=== PATIENT | male | born 1950 | race Caucasian/White ===

== ENCOUNTER 2017-03-28 11:18 | Inpatient (IN) | payer MEDICARE, OTHER ==
[~2017-03-28] VITALS: Ht 170.2 cm; Wt 75.0 kg
[2017-03-28 11:24] VITALS: BP 140/68; PULSE 52; RESP 15; TEMP 97.9; O2SAT 99
[2017-03-28] MEDS ORDERED: ASPI-183 PO (11:32)
[2017-03-28] MEDS ORDERED: LIPI10TA PO (11:32)
--- NOTE | 2017-03-28 11:49 | PD ---
HPI Chief Complaint: Musculoskeletal Complaint Time Seen by Provider: 11:39 Travel History International Travel<30 days: No Contact w/Intl Traveler<30days: No Traveled to known affect area: No History of Present Illness HPI A 66-year-old male presents to the emergency department for fall. The patient was removing [employer] lights when he missed the last step of his ladder. He was not dizzy or lightheaded, did not hit his head. The patient reports pain 9/10 on the pain scale, and localized to the middle of the left leg. Upon EMS arrival the patient was bradycardic, pale, and diaphoretic with a heart rate in the 40s and was given 650 mL of fluids prehospital. Patient was also given 10 of morphine which helped a little. Patient has a history of breaking the left leg in the same area 4 times previously and has had surgery on it before, he currently has no metal in it. The patient has a history of a left bundle branch block. History Past Surgical History Narrative Surgical orthopedic surgery on the left leg Social History Tobacco Use: No Allergies-Medications (Allergen,Severity, Reaction): Coded Allergies: No Known Allergies (Unverified , 03/28/17) Reported Meds & Prescriptions Reported Meds & Active Scripts Active Reported Lipitor (Atorvastatin Calcium) 10 Mg Tab 10 Mg PO DAILY Aspirin 325 Mg Tab 325 Mg PO DAILY Physical Exam Narrative GENERAL: SKIN: Warm and dry. HEAD: Atraumatic. Normocephalic. EYES: Pupils equal and round. No scleral icterus. No injection or drainage. ENT: No nasal bleeding or discharge. Mucous membranes pink and moist. NECK: Trachea midline. No JVD. CARDIOVASCULAR: Regular rate and rhythm. RESPIRATORY: No accessory muscle use. Clear to auscultation. Breath sounds equal bilaterally. GASTROINTESTINAL: Abdomen soft, non-tender, nondistended. Hepatic and splenic margins not palpable. MUSCULOSKELETAL: Extremities without clubbing, cyanosis, or edema. Dorsalis pedis pulse palpable bilaterally. No skin break but tenting noted on the medial aspect of the left lower leg. Tender to palpation. Neurovascularly intact. NEUROLOGICAL: Awake and alert. No obvious cranial nerve deficits. Motor grossly within normal limits. Five out of 5 muscle strength in the arms and legs. Normal speech. PSYCHIATRIC: Appropriate mood and affect; insight and judgment normal. Data Data Last Documented VS Vital Signs Date Time Temp Pulse Resp B/P (MAP) Pulse Ox O2 Delivery O2 Flow Rate FiO2 03/28/17 13:46 49 16 117/59 (78) 97 Nasal Cannula 2.00 03/28/17 11:24 97.9 Orders Orders Electrocardiogram (03/28/17 11:33) Ondansetron Inj (Zofran Inj) (03/28/17 12:00) Complete Blood Count With Diff (03/28/17 11:48) Comprehensive Metabolic Panel (03/28/17 11:48) Prothrombin Time / Inr (Pt) (03/28/17 11:48) Act Partial Throm Time (Ptt) (03/28/17 11:48) Urinalysis - C+S If Indicated (03/28/17 11:48) Chest, Single Ap (03/28/17 11:48) Iv Access Insert/Monitor (03/28/17 11:48) Ecg Monitoring (03/28/17 11:48) Oximetry (03/28/17 11:48) Hydromorphone Pf Inj (Dilaudid Pf Inj) (03/28/17 12:00) Tibia/Fibula (Ap/Lat) (03/28/17 12:20) Hydromorphone Pf Inj (Dilaudid Pf Inj) (03/28/17 12:45) Etomidate Inj (Amidate Inj) (03/28/17 13:00) Etomidate Inj (Amidate Inj) (03/28/17 12:47) Tibia/Fibula (Ap/Lat) (03/28/17 13:03) Admit To Inpatient (03/28/17 ) Vital Signs (Adult) Q4H (03/28/17 14:34) Activity Bed Rest (03/28/17 14:34) Diet Heart Healthy (03/28/17 Dinner) Sodium Chloride 0.9% Flush (Ns Flush) (03/28/17 14:45) Sodium Chloride 0.9% Flush (Ns Flush) (03/28/17 14:45) Acetaminophen (Tylenol) (03/28/17 14:45) Ondansetron Inj (Zofran Inj) (03/28/17 14:45) Comprehensive Metabolic Panel (03/29/17 06:00) Complete Blood Count With Diff (03/29/17 06:00) Scd Bilateral/Knee High MIREYA.BID (03/28/17 14:34) Oxycodone-Acetamin 10-325 Mg (Percocet 1 (03/28/17 14:45) Morphine Inj (Morphine Inj) (03/28/17 14:45) Naloxone Inj (Narcan Inj) (03/28/17 14:45) Docusate Sodium-Senna (Uzly-Colace) (03/28/17 21:00) Magnesium Hydroxide Liq (Milk Of Magnesi (03/28/17 14:45) Sennosides (Senokot) (03/28/17 14:45) Bisacodyl Supp (Dulcolax Supp) (03/28/17 14:45) Lactulose Liq (Lactulose Liq) (03/28/17 14:45) Inpatient Certification (03/28/17 ) Admit Order (Ed Use Only) (03/28/17 14:35) Labs Laboratory Tests Test 03/28/17 11:50 White Blood Count 6.7 TH/MM3 Red Blood Count 4.27 MIL/MM3 Hemoglobin 14.0 GM/DL Hematocrit 39.8 % Mean Corpuscular Volume 93.2 FL Mean Corpuscular Hemoglobin 32.8 PG Mean Corpuscular Hemoglobin Concent 35.2 % Red Cell Distribution Width 13.6 % Platelet Count 228 TH/MM3 Mean Platelet Volume 8.4 FL Neutrophils (%) (Auto) 64.8 % Lymphocytes (%) (Auto) 26.9 % Monocytes (%) (Auto) 6.3 % Eosinophils (%) (Auto) 1.3 % Basophils (%) (Auto) 0.7 % Neutrophils # (Auto) 4.4 TH/MM3 Lymphocytes # (Auto) 1.8 TH/MM3 Monocytes # (Auto) 0.4 TH/MM3 Eosinophils # (Auto) 0.1 TH/MM3 Basophils # (Auto) 0.0 TH/MM3 CBC Comment DIFF FINAL Differential Comment Prothrombin Time 10.7 SEC Prothromb Time International Ratio 1.1 RATIO Activated Partial Thromboplast Time 23.4 SEC Blood Urea Nitrogen 17 MG/DL Creatinine 0.88 MG/DL Random Glucose 94 MG/DL Total Protein 7.1 GM/DL Albumin 4.0 GM/DL Calcium Level 8.2 MG/DL Alkaline Phosphatase 75 U/L Aspartate Amino Transf (AST/SGOT) 21 U/L Alanine Aminotransferase (ALT/SGPT) 23 U/L Total Bilirubin 0.7 MG/DL Sodium Level 140 MEQ/L Potassium Level 3.8 MEQ/L Chloride Level 108 MEQ/L Carbon Dioxide Level 26.7 MEQ/L Anion Gap 5 MEQ/L Estimat Glomerular Filtration Rate 87 ML/MIN MDM Medical Decision Making Medical Screen Exam Complete: Yes Emergency Medical Condition: Yes Differential Diagnosis Tibia fracture versus tib-fib fracture versus contusion Narrative Course 66-year-old male presents today with complaints of left tib-fib fracture. Patient was on the ladder taking down [employer] decorations when he fell off and landed on his left lower extremity. The patient had previous fractures of that tib-fib in the past. He has palpable pulses and sensation. He does have some tenting noted in the skin. X-ray shows a midshaft tibia fracture. Also has evidence of missing fibula bone from his previous surgeries. The patient be admitted to the medicine service. He'll be made nothing by mouth after midnight. Case was discussed with Dr. Ciara Vaughn's PA who reports they will perform surgery in the morning. Diagnosis Primary Impression: Fracture of tibia with fibula, left, closed Qualified Codes: S82.202A - Unspecified fracture of shaft of left tibia, initial encounter for closed fracture; S82.402A - Unspecified fracture of shaft of left fibula, initial encounter for closed fracture Additional Impression: HLD (hyperlipidemia) Olman Pendleton MD Mar 28, 2017 11:49
[2017-03-28] MEDS ORDERED: ONDANSETRON HCL 4 MG/2 ML VIAL IV PUSH ONE (12:00)
[2017-03-28] MEDS ORDERED: HYDROmorphone HCL PF 2 MG/ML VIAL IVS ONE ×2 (12:00→12:45)
[2017-03-28 12:12] LABS: AUTOMATED NEUTROPHIL # 4.4 TH/MM3 (1.8-7.7); BASOPHIL % 0.7 % (0.0-2.0); EOSINOPHIL # 0.1 TH/MM3 (0-0.4); EOSINOPHIL % 1.3 % (0.0-4.0); HEMATOCRIT 39.8 % (39.0-51.0); LYMPH % 26.9 % (9.0-44.0); LYMPHOCYTE # 1.8 TH/MM3 (1.0-4.8); MEAN CELL VOLUME 93.2 FL (80.0-100.0); MEAN CORPUSCULAR HEMOGLOBIN 32.8 PG (27.0-34.0); MEAN CORPUSCULAR HGB CONC 35.2 % (32.0-36.0); MEAN PLATELET VOLUME 8.4 FL (7.0-11.0); MONO % 6.3 % (0.0-8.0); MONOCYTE # 0.4 TH/MM3 (0-0.9); NEUT % 64.8 % (16.0-70.0); PLATELET COUNT 228 TH/MM3 (150-450); RED BLOOD COUNT 4.27 MIL/MM3 (4.50-5.90); RED CELL DISTRIBUTION WIDTH 13.6 % (11.6-17.2); WHITE BLOOD COUNT 6.7 TH/MM3 (4.0-11.0)
[2017-03-28 12:24] LABS: INTERNATIONAL NORMALIZED RATIO 1.1 RATIO; PROTHROMBIN TIME - PATIENT 10.7 SEC (9.8-11.6)
--- NOTE | 2017-03-28 12:28 | RADRPT ---
EXAM DATE/TIME: 03/28/2017 12:02 [facility] COMPARISON: No previous studies available for comparison. INDICATIONS : Evaluate for pneumonia, pneumothorax or communicable disease. Pre op for left tibia surgery. MEDICAL HISTORY : hx of left bundle branch block SURGICAL HISTORY : None. ENCOUNTER: Initial ACUITY: 1 day PAIN SCORE: 0/10 LOCATION: Bilateral chest FINDINGS: A single view of the chest demonstrates the lungs to be symmetrically aerated without evidence of mas s, infiltrate or effusion. Mild compensated cardiomegaly. Osseous structures are intact. Previous right shoulder arthroplasty CONCLUSION: Mild compensated cardiomegaly otherwise negative Frederic Queen MD FACR on March 28, 2017 at 12:25 Board Certified Radiologist. This report was verified electronically.
[2017-03-28 12:32] LABS: ALT (GPT) 23 U/L (12-78); AST (GOT) 21 U/L (15-37); BICARBONATE 26.7 MEQ/L (21.0-32.0); BLOOD UREA NITROGEN 17 MG/DL (7-18); CALCIUM 8.2 MG/DL (8.5-10.1); CHLORIDE 108 MEQ/L (98-107); CREATININE 0.88 MG/DL (0.60-1.30); GLOMERULAR FILTRATION RATE 87 ML/MIN (>89); GLUCOSE,RANDOM 94 MG/DL (74-106); SODIUM (NA) 140 MEQ/L (136-145)
[2017-03-28 12:34] LABS: ALKALINE PHOSPHATASE 75 U/L (45-117); TOTAL BILIRUBIN ADULT 0.7 MG/DL (0.2-1.0); TOTAL PROTEIN 7.1 GM/DL (6.4-8.2)
--- NOTE | 2017-03-28 12:42 | RADRPT ---
EXAM DATE/TIME: 03/28/2017 11:54 [facility] COMPARISON: No previous studies available for comparison. INDICATIONS : Fell off of a ladder today. MEDICAL HISTORY : SURGICAL HISTORY : broke same leg 4 x per pt ENCOUNTER: Initial ACUITY: 1 day PAIN SCORE: 10/10 LOCATION: Left tib/fib FINDINGS: Both bone fracture of the distal tibia and fibula. Fibular fracture looks old. The tibial fracture may be across an old fracture. CONCLUSION: Probable re break old fracture distal tibia. Frederic Queen MD FACR on March 28, 2017 at 12:22 Board Certified Radiologist. This report was verified electronically.
[2017-03-28] MEDS ORDERED: ETOMIDATE 40 MG/20 ML VIAL ONE (12:47)
[2017-03-28] MEDS ORDERED: ETOMIDATE 20 MG/10 ML VIAL IV PUSH ONE (13:00)
[2017-03-28 13:13] VITALS: BP 125/65; PULSE 51; RESP 16; O2SAT 98
[2017-03-28 13:30] VITALS: BP 129/60; PULSE 56; RESP 16; O2SAT 96
[2017-03-28 13:46] VITALS: BP 117/59; PULSE 49; RESP 16; O2SAT 97
--- NOTE | 2017-03-28 13:52 | RADRPT ---
EXAM DATE/TIME: 03/28/2017 13:02 [facility] COMPARISON: TIBIA/FIBULA LEFT (AP/LAT), March 28, 2017, 11:54. INDICATIONS : Post reduction fracture mid-shaft left tibia. MEDICAL HISTORY : Fracture Left tibia prior SURGICAL HISTORY : None. ENCOUNTER: Subsequent ACUITY: 1 day PAIN SCORE: 10/10 LOCATION: Left tibia FINDINGS: Angulation persisting in fiberglass at 12. Degenerative changes are present about the ankle. CONCLUSION: Ablation as above. Frederic Queen MD FACR on March 28, 2017 at 13:48 Board Certified Radiologist. This report was verified electronically.
[2017-03-28] MEDS ORDERED: ACETAMINOPHEN 325 MG TAB PO PRN (14:45)
[2017-03-28] MEDS ORDERED: SENNOSIDES 8.6 MG TAB PO PRN (14:45)
[2017-03-28] MEDS ORDERED: ONDANSETRON HCL 4 MG/2 ML VIAL IVP PRN (14:45)
[2017-03-28] MEDS ORDERED: NALOXONE HCL 0.4 MG/ML AMP IV PUSH PRN (14:45)
[2017-03-28] MEDS ORDERED: BISACODYL 10 MG SUPP RECTAL PRN (14:45)
[2017-03-28] MEDS ORDERED: SODIUM CHLORIDE 0.9% FLUSH 10 ML FLUSH IV FLUSH PRN (14:45)
[2017-03-28] MEDS ORDERED: LACTULOSE SYRUP 20 GM/30 ML CUP PO PRN (14:45)
[2017-03-28] MEDS ORDERED: oxyCODONE/ACETAMINOPHEN 10 MG/325 MG TAB PO PRN (14:45)
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
[2017-03-28 15:06] VITALS: BP 129/63; PULSE 52; RESP 17; O2SAT 98
[2017-03-28] MEDS: SODIUM CHLORIDE 0.9% FLUSH 10 ML FLUSH IV FLUSH SCH ×2 (16:30→19:32)
[2017-03-28] MEDS: ATORVASTATIN 10 MG TAB PO SCH (17:00)
--- NOTE | 2017-03-28 18:17 | EKG ---
Date Performed: 03/28/2017 Time Performed: 11:34:53 PTAGE: 66 years EKG: SINUS BRADYCARDIA WITH SHORT KS INTERVAL LEFT BUNDLE BRANCH BLOCK ABNORMAL ECG NO PREVIOUS TRACING DOCTOR: Marcie Thakur Interpretating Date/Time 03/28/2017 18:16:54
[2017-03-28] MEDS: MAGNESIUM HYDROXIDE SUSP 30 ML CUP PO PRN (19:31)
[2017-03-28] MEDS: DOCUSATE SODIUM 50 MG/SENNA 8.6 MG TAB PO SCH (19:32)
[2017-03-28] MEDS: MORPHINE SULFATE 2 MG/ML INJ IV PUSH PRN (19:36)
[2017-03-28 21:00] VITALS: BP 144/68; PULSE 56; RESP 17; TEMP 98.1; O2SAT 98
[2017-03-28] MEDS ORDERED: CHLORHEXIDINE GLUCONATE 2 % 1 PACK (2 CLOTHS) TOPICAL PRN (22:30)
[2017-03-28] MEDS ORDERED: POVIDONE IODINE 5% (ANTISEPSIS KIT) 4 APPLICATIONS EACH NARE PRN (22:30)
[2017-03-28] MEDS ORDERED: METOPROLOL TARTRATE 25 MG TAB PO PRN (22:30)
[2017-03-28] MEDS ORDERED: LACTATED RINGER'S 1000 ML IV PRN (22:30)
[2017-03-28] MEDS ORDERED: SODIUM CHLORID 0.9% 500 ML IV PRN (22:30)
[2017-03-29 00:50] VITALS: BP 137/73; PULSE 61; RESP 17; TEMP 97.8; O2SAT 96
[2017-03-29] MEDS: MORPHINE SULFATE 2 MG/ML INJ IV PUSH PRN (02:50)
[2017-03-29 03:32] LABS: BILIRUBIN, URINE NEG (NEG); BLOOD, URINE NEG (NEG); GLUCOSE,URINE NEG (NEG); KETONE, URINE 40 mg/dL (NEG); MUCUS URINE FEW /lpf (OCC); NITRITE,URINE NEG (NEG); PH, URINE 6.5 (5.0-8.5); URINE COLOR YELLOW (YELLW/STRAW); URINE LEUKOCYTE ESTERASE NEG (NEG)
[2017-03-29 04:10] VITALS: BP 121/67; PULSE 57; RESP 17; TEMP 97.6; O2SAT 95
[2017-03-29 06:24] LABS: AUTOMATED NEUTROPHIL # 4.5 TH/MM3 (1.8-7.7); BASOPHIL % 0.4 % (0.0-2.0); EOSINOPHIL % 0.5 % (0.0-4.0); HEMATOCRIT 36.4 % (39.0-51.0); LYMPH % 24.2 % (9.0-44.0); LYMPHOCYTE # 1.7 TH/MM3 (1.0-4.8); MEAN CELL VOLUME 92.1 FL (80.0-100.0); MEAN CORPUSCULAR HEMOGLOBIN 32.8 PG (27.0-34.0); MEAN CORPUSCULAR HGB CONC 35.6 % (32.0-36.0); MEAN PLATELET VOLUME 8.4 FL (7.0-11.0); MONO % 8.9 % (0.0-8.0); MONOCYTE # 0.6 TH/MM3 (0-0.9); PLATELET COUNT 210 TH/MM3 (150-450); RED BLOOD COUNT 3.95 MIL/MM3 (4.50-5.90); RED CELL DISTRIBUTION WIDTH 13.3 % (11.6-17.2); WHITE BLOOD COUNT 6.9 TH/MM3 (4.0-11.0)
--- NOTE | 2017-03-29 06:42 | PD.ORT.PN ---
Subjective Subjective Remarks s/p left tibia fx resting comfortably. Objective Vitals Vital Signs Date Time Temp Pulse Resp B/P (MAP) Pulse Ox O2 Delivery O2 Flow Rate FiO2 03/29/17 04:10 97.6 57 17 121/67 (85) 95 03/29/17 00:50 97.8 61 17 137/73 (94) 96 03/28/17 21:00 98.1 56 17 144/68 (93) 98 03/28/17 18:38 03/28/17 15:06 52 17 129/63 (85) 98 Nasal Cannula 2.00 03/28/17 13:46 49 16 117/59 (78) 97 Nasal Cannula 2.00 03/28/17 13:30 56 16 129/60 (83) 96 Nasal Cannula 2.00 03/28/17 13:13 51 16 125/65 (85) 98 Nasal Cannula 2.00 03/28/17 11:24 97.9 52 15 140/68 (92) 99 I/O 03/28/17 03/28/17 03/28/17 03/29/17 03/29/17 03/29/17 07:00 15:00 23:00 07:00 15:00 23:00 Intake Total 240 ml Output Total 300 ml Balance -60 ml Intake Oral 240 ml Output Urine Total 300 ml # Bowel Movements 0 Result Diagram: 03/29/17 0445 03/28/17 1150 Other Results Laboratory Tests Test 03/28/17 11:50 Prothromb Time International Ratio 1.1 RATIO Prothrombin Time 10.7 SEC (9.8-11.6) Imaging Last 24 hours Impressions Tibia/Fibula X-Ray 03/28/17 1303 Signed Impressions: Service Date/Time: Tuesday, March 28, 2017 13:02 - CONCLUSION: Ablation as above. Frederic Queen MD FACR Tibia/Fibula X-Ray 03/28/17 1220 Signed Impressions: Service Date/Time: Tuesday, March 28, 2017 11:54 - CONCLUSION: Probable re break old fracture distal tibia. Frederic Queen MD FACR Chest X-Ray 03/28/17 1148 Signed Impressions: Service Date/Time: Tuesday, March 28, 2017 12:02 - CONCLUSION: Mild compensated cardiomegaly otherwise negative Frederic Queen MD FACR Objective Remarks LLE: +short leg splint,. intact. NVI. compartments soft Assessment & Plan Assessment and Plan 1) Left Tibial Shaft Fx -NPO -consents -surgery today Roderick Levy/First Mary SANTIAGO Mar 29, 2017 06:42
[2017-03-29] MEDS ORDERED: HYDR-3583 PO (06:43)
[2017-03-29] MEDS ORDERED: WALKER/ADULT/FO1 MIS (06:43)
[2017-03-29] MEDS ORDERED: XARE10TA PO (06:43)
[2017-03-29 06:55] LABS: ALBUMIN 3.7 GM/DL (3.4-5.0); AST (GOT) 19 U/L (15-37); BICARBONATE 30.5 MEQ/L (21.0-32.0); BLOOD UREA NITROGEN 14 MG/DL (7-18); CALCIUM 8.3 MG/DL (8.5-10.1); CHLORIDE 102 MEQ/L (98-107); CREATININE 0.76 MG/DL (0.60-1.30); GLOMERULAR FILTRATION RATE 103 ML/MIN (>89); GLUCOSE,RANDOM 91 MG/DL (74-106); SODIUM (NA) 139 MEQ/L (136-145)
[2017-03-29 06:58] LABS: ALKALINE PHOSPHATASE 70 U/L (45-117); ALT (GPT) 21 U/L (12-78); TOTAL BILIRUBIN ADULT 0.8 MG/DL (0.2-1.0); TOTAL PROTEIN 6.7 GM/DL (6.4-8.2)
[2017-03-29] MEDS ORDERED: VANCOMYCIN HCL 1000 MG VIAL ONE (07:50)
[2017-03-29] MEDS ORDERED: SODIUM CHLOR 0.9% 250 ML INJ 250 ML ONE (07:50)
[2017-03-29] MEDS ORDERED: GENTAMICIN SULFATE 80 MG/2 ML VIAL ONE (07:50)
[2017-03-29] MEDS ORDERED: ceFAZolin INJ 1,000 MG VIAL ONE (08:40)
[2017-03-29] MEDS ORDERED: METOPROLOL TARTRATE 25 MG TAB PO PRN (08:45)
[2017-03-29] MEDS ORDERED: SODIUM CHLORID 0.9% 500 ML IV PRN (08:45)
[2017-03-29] MEDS ORDERED: LACTATED RINGER'S 1000 ML IV PRN (08:45)
[2017-03-29] MEDS ORDERED: CHLORHEXIDINE GLUCONATE 2 % 1 PACK (2 CLOTHS) TOPICAL PRN (08:45)
[2017-03-29] MEDS ORDERED: POVIDONE IODINE 5% (ANTISEPSIS KIT) 4 APPLICATIONS EACH NARE PRN (08:45)
[2017-03-29] MEDS: SODIUM CHLORIDE 0.9% FLUSH 10 ML FLUSH IV FLUSH SCH ×2 (09:00→20:09)
--- NOTE | 2017-03-29 09:58 | PD.OP ---
cc: Tommy Urbina MD Operative Report Date of Surgery: Mar 29, 2017 Preoperative Diagnosis: Displaced left tibia shaft fracture Postoperative Diagnosis: Procedure: Intramedullary nail fixation left tibia Anesthesia: Gen. Surgeon: Tommy Urbina Theatrical Rigger(s): JUDE Beavers PA-C The surgical procedure was assisted by my physician refinery operator assistant. My P.A. presence was necessary throughout this case for the manipulation and positioning of the surgical extremity. My P.A. was assisting me throughout the duration of this procedure. The skill set of a physician refinery operator assistant was medically necessary to complete this procedure. During the surgical case the echo vascular technologist was working at the back table and the physician refinery operator assistant was directly assisting me. Operation and Findings: Implants: ITS [9]mm x [345]mm tibial nail Plan of activity: 50% weightbearing left leg 4 weeks, then weight-bear as tolerated Patient was seen and examined preoperatively. An informed consent was obtained from patient after detailed discussion of risk and benefits. Risks of surgery include bleeding, infection, painful hardware, nonunion, malunion, leg length discrepancy, need for hardware removal, and medical complications associated with anesthesia including blood clots, stroke, heart attack, and were discussed. Operative site was marked. Patient was brought to the operating room placed on or table. Patient received IV antibiotics and was given IV sedation GETA. Operative leg was prepped with alcohol Hibiclens and draped in usual sterile fashion. Timeout procedure was performed Procedure began with reduction of fracture. 2 small incisions were made around the fracture site. A percutaneous clamp was placed. Traction was applied. Fracture was reduced. There was comminution of the fracture. The fracture reduced and excellent alignment was achieved. Fracture clamp was used to aid in reduction. Next a 3 cm incision was made proximal to the patella. Quadriceps tendon was split in line with fibers. Cannulas were placed in the patellofemoral joint to protect the articular surface at all times. A guidepin was placed into the tibia and advanced in the tibial canal. Fluoroscopy was used to confirm appropriate guidepin placement. An opening reamer was used to open the tibial canal. A ball-tipped guidewire was advanced down the tibial canal. Guidepin was passed across the fracture site into the center of the distal tibia. Fluoroscopy confirmed guidepin placement. The nail length was now measured. The fracture was now held in a reduced position and the canal was reamed. The canal was reamed up to appropriate size. A ITS nail was now selected. Next the nail was fully seated. Using perfect blackfeet technique 2 distal interlocking screws were placed. The nail was now back slapped to compress the fracture site. Using the insertion handle as a guide, 1 proximal interlocking screw was placed. Fluoroscopy confirmed excellent of fracture with well-placed hardware. Incisions and the knee joint were thoroughly irrigated with sterile saline. Fascia was closed with #1 Vicryl, subcutaneous tissues closed with 3-0 Vicryl and skin was closed with jordon. Sterile dressings were applied. Patient was awakened and transferred to recovery in stable condition. Tommy Urbina MD Mar 29, 2017 09:58
[2017-03-29] MEDS ORDERED: MIDAZOLAM HCL 2 MG/2 ML VIAL ONE (10:26)
[2017-03-29] MEDS ORDERED: *morphine SULFATE 10 MG/ML PERIprocedure ONLY ONE (10:27)
[2017-03-29] MEDS ORDERED: MORPHINE SULFATE 2 MG/ML INJ IV PUSH PRN (10:30)
[2017-03-29] MEDS ORDERED: *morphine SULFATE 4 MG/ML PERIprocedure ONLY ONE (10:39)
[2017-03-29] MEDS ORDERED: diphenhydrAMINE HCL 25 MG CAP PO PRN (10:45)
--- NOTE | 2017-03-29 10:52 | MB ---
cc: JAMAAL VELIZ MD, TODD DATE OF CONSULTATION 03/29/2017 REASON FOR CONSULTATION Left tibia shaft fracture. CONSULTING PHYSICIAN Dr. Jamaal Veliz. HISTORY OF PRESENT ILLNESS Mr. Perez is a 66-year-old male who presented to the hospital after falling. He was taking off [employer] lights. He was on the ladder. He missed a step. He landed on his left leg. He had immediate left leg pain. He has broken the left tibia several times in the past. His previous hardware had been removed. He is currently awake and alert on the orthopedic floor. His chief complaint is his left leg. He does have some soreness around the left wrist. Left leg pain is worse with movement. He denies dizziness, syncope or loss of consciousness. PAST MEDICAL HISTORY SURGERIES 1. Right shoulder hemiarthroplasty. 2. Right wrist surgery x2. 3. Left leg ORIF. 4. Left leg hardware removal. ALLERGIES No known drug allergies. MEDICATIONS 1. Lipitor. 2. Aspirin. FAMILY HISTORY Positive for diabetes in his mother and brother and coronary artery disease in his father. SOCIAL HISTORY The patient lives with his . He is retired from the [employer]. He drinks alcohol most days. He denies tobacco or drug use. REVIEW OF SYSTEMS The patient denies headache, visual changes, neck pain, chest pain, shortness of breath, abdominal pain, nausea, vomiting or recent weight loss, fevers or chills, bowel or bladder incontinence, or numbness or tingling of extremities. He complains of left leg pain. PHYSICAL EXAMINATION GENERAL: The patient is a pleasant 66-year-old male in no acute distress. He is awake and alert. He is alert and oriented x3. He appears well-developed, well-nourished. VITAL SIGNS: Temperature 97.6, pulse 57, respirations 17, blood pressure 121/67. O2 sat is 95% on two liters nasal cannula. HEAD: The patient is normocephalic. Pupils are equal. NECK: Soft, nontender. Trachea is midline. ABDOMEN: Soft, nontender, nondistended. EXTREMITIES: Examination of right arm reveals no pain with shoulder, elbow or wrist motion. He has intact sensation in all fingers. He has good capillary refill in all fingers. Skin is intact. Radial pulse is palpable. Examination of left arm reveals no pain with shoulder or elbow motion. He has mild tenderness along the dorsal wrist capsule. He has minimal discomfort with gentle wrist range of motion. He has no tenderness over the scaphoid. He is able to make a fist. He has good capillary refill in all fingers. Radial pulse is palpable. Examination of right leg reveals no pain with hip, knee or ankle motion. Skin is intact. Dorsalis pedis pulse is palpable. Sensation is intact. Examination of left leg reveals no tenderness around his hip or knee. He is diffusely tender to palpation around the tibia. Thigh and calf compartments are soft. Skin is intact. Dorsalis pedis pulse is palpable. Sensation is intact in the left foot. X-RAYS X-rays of left tibia were reviewed. X-rays reveal a displaced left midshaft tibia fracture. IMPRESSION Displaced left midshaft tibia fracture. PLAN The treatment options were discussed with the patient. At this point I would recommend reduction and intramedullary nail fixation of the left tibia. The risks of surgery include bleeding, infection, injuries to arteries, nerves and blood vessels, nonunion, malunion, painful hardware, as well as medical complications including blood clot, stroke, heart attack and . All questions were answered. I will plan on surgery today. A mid-level provider in my office, nurse practitioner or PA, may see this patient on a follow-up basis and continue to implement the objective of this plan including: Starting or adjusting medications, injections of muscle, tendon, bursa or joints, cast application, orthotic or brace application, physical therapy, further radiographic studies including x-ray, MRI, CT, ultrasounds or bone scan, vascular studies, neurologic studies, or other specialist consultations, and proceeding with surgical management as appropriate. MD FRANTZ White/LEO /9:49 AM /10:26 AM
[2017-03-29] MEDS: LACTATED RINGER'S 1000 ML INJ 1,000 ML IV SCH ×3 (11:00→22:13)
[2017-03-29] MEDS ORDERED: ERGOCALCIFEROL (VIT D2) 50,000 UNIT CAP PO SCH (11:00)
[2017-03-29 11:15] VITALS: BP 127/64; PULSE 67; RESP 18; TEMP 97.2; O2SAT 94
--- NOTE | 2017-03-29 11:38 | RADRPT ---
EXAM DATE/TIME: 03/29/2017 10:42 [facility] COMPARISON: No previous studies available for comparison. INDICATIONS : Pain in left wrist. No known injury. MEDICAL HISTORY : None. SURGICAL HISTORY : None. ENCOUNTER: Initial ACUITY: 1 day PAIN SCORE: 3/10 LOCATION: Left wrist FINDINGS: Three view examination of the left wrist demonstrates no soft tissue swelling, dislocation, or fractu re. The carpal bones are in normal alignment. Minimal degenerative change is present with slight scl erosis involving the first metacarpal carpal joint. Bony mineralization is normal. CONCLUSION: Minimal osteoarthritic change. Frank Lawrence MD on March 29, 2017 at 11:34 Board Certified Radiologist. This report was verified electronically.
[2017-03-29] MEDS ORDERED: ACETAMINOPHEN/HYDROcodone 325 MG/10 MG TAB PO PRN (13:15)
--- NOTE | 2017-03-29 13:32 | RADRPT ---
EXAM DATE/TIME: 03/29/2017 09:44 [facility] COMPARISON: TIBIA/FIBULA LEFT (AP/LAT), March 28, 2017, 13:02. INDICATIONS : Left tibia open reduction internal fixation IM mundo. MEDICAL HISTORY : Fracture Left tibia prior SURGICAL HISTORY : None. ENCOUNTER: Initial ACUITY: 1 day PAIN SCORE: Non-responsive. LOCATION: Left tibia FINDINGS: Multiple coned down views of the tibia were obtained and demonstrate placement of an intramedullary r od with 2 distal and one proximal interlocking screws. This transfixes the old fracture deformity whi ch is in anatomic alignment. There are remote postsurgical changes again noted involving the fibula w ith a portion of the central fibula absent. CONCLUSION: Status post op in the rigid internal fixation. Frank Lawrence MD on March 29, 2017 at 13:28 Board Certified Radiologist. This report was verified electronically.
[2017-03-29] MEDS: CALCIUM/VITAMIN D 250 MG/125 U TAB PO SCH ×2 (13:34→17:12)
[2017-03-29] MEDS: DOCUSATE SODIUM 50 MG/SENNA 8.6 MG TAB PO SCH ×2 (13:35→20:08)
[2017-03-29] MEDS: ATORVASTATIN 10 MG TAB PO SCH (13:36)
[2017-03-29] MEDS: KETOROLAC TROMETHAMINE 30 MG/ML (IVP) VIAL IVP SCH ×2 (13:41→20:08)
--- NOTE | 2017-03-29 14:34 | HHI.PR ---
Subjective Remarks Follow-up for tib-fib fracture Patient seen in his room after surgery. His is at the bedside during the interview. He has no complaints. He stated that he had some left wrist pain and that he had x-ray done but he did not hear any results in regards to that. Otherwise he had no complaints. He stated that his fall was an accident. Objective Vitals Vital Signs Date Time Temp Pulse Resp B/P (MAP) Pulse Ox O2 Delivery O2 Flow Rate FiO2 03/29/17 11:15 97.2 67 18 127/64 (85) 94 03/29/17 10:55 97.8 64 16 136/70 (92) 95 Nasal Cannula 2 03/29/17 10:45 68 15 130/68 (88) 94 Nasal Cannula 2 03/29/17 10:32 15 03/29/17 10:30 72 14 122/63 (82) 98 Nasal Cannula 3 03/29/17 10:15 97.7 78 12 118/60 (79) 95 Nasal Cannula 3 03/29/17 04:10 97.6 57 17 121/67 (85) 95 03/29/17 00:50 97.8 61 17 137/73 (94) 96 03/28/17 21:00 98.1 56 17 144/68 (93) 98 03/28/17 18:38 03/28/17 15:06 52 17 129/63 (85) 98 Nasal Cannula 2.00 I/O 03/28/17 03/28/17 03/28/17 03/29/17 03/29/17 03/29/17 06:59 14:59 22:59 06:59 14:59 22:59 Intake Total 240 ml 1560 ml Output Total 300 ml 375 ml Balance -60 ml 1185 ml Intake Oral 240 ml 240 ml IV Total 320 ml Other 1000 ml Output Urine Total 300 ml 300 ml Estimated Blood Loss 75 ml # Voids 0 # Bowel Movements 0 Result Diagram: 03/29/1744403/29/17444 Objective Remarks GENERAL: in NAD CARDIOVASCULAR: Regular rate and rhythm without murmurs, gallops, or rubs. RESPIRATORY: Breath sounds equal bilaterally. No accessory muscle use. GASTROINTESTINAL: Abdomen soft, non-tender, nondistended. MUSCULOSKELETAL: Left leg in bandages and and splint. Medications and IVs Current Medications Ondansetron HCl (Zofran Inj) 4 mg ONCE ONCE IV PUSH Last administered on 12:20; Start 03/28/17 at 12:00; Stop 03/28/17 at 12:01; Status DC Hydromorphone HCl (Dilaudid Pf Inj) 1 mg ONCE ONCE IVS Last administered on 03/28/17at 12:21; Start 03/28/17 at 12:00; Stop 03/28/17 at 12:01; Status DC Hydromorphone HCl (Dilaudid Pf Inj) 1 mg ONCE ONCE IVS Last administered on 17:10; Start 03/28/17 at 12:45; Stop 03/28/17 at 12:47; Status DC Etomidate (Amidate Inj) 20 mg ONCE ONCE IV PUSH Last administered on 03/28/17 13:04; Start 03/28/17 at 13:00; Stop 03/28/17 at 13:01; Status DC Etomidate (Amidate Inj) 40 mg STK-MED ONCE .ROUTE ; Start 03/28/17 at 12:47; Stop 03/28/17 at 12:48; Status DC Sodium Chloride (NS Flush) 2 ml UNSCH PRN IV FLUSH FLUSH AFTER USING IV ACCESS ; Start 03/28/17 at 14:45 Sodium Chloride (NS Flush) 2 ml BID IV FLUSH Last administered on 03/28/17at 19: 32; Start 03/28/17 at 14:45 Acetaminophen (Tylenol) 650 mg Q4H PRN PO TEMP > 100.4, H/A; Start 03/28/17 at 14:45 Ondansetron HCl (Zofran Inj) 4 mg Q6H PRN IVP NAUSEA OR VOMITING Last administered on 03/28/17at 17:10; Start 03/28/17 at 14:45 Oxycodone/ Acetaminophen (Percocet 10-325 Mg) 1 tab Q6H PRN PO PAIN SCALE 5 TO 10 Last administered on 03/28/17at 22:54; Start 03/28/17 at 14:45; Stop 03/29/17 at 13:12; Status DC Morphine Sulfate (Morphine Inj) 4 mg Q3H PRN IV PUSH BREAKTHROUGH PAIN Last administered on 03/29/17at 02:50; Start 03/28/17 at 14:45; Stop 03/29/17 at 10:33; Status DC Naloxone HCl (Narcan Inj) 0.4 mg UNSCH PRN IV PUSH SEE LABEL COMMENTS; Start at 14:45 Senna/Docusate Sodium (Zuly-Colace) 1 tab BID PO Last administered on 03/29/17at 13:35; Start 03/28/17 at 21:00 Magnesium Hydroxide (Milk Of Magnesia Liq) 30 ml Q12H PRN PO Mild constipation Last administered on 03/28/17at 19:31; Start 03/28/17 at 14:45 Sennosides (Senokot) 17.2 mg Q12H PRN PO Moderate constipation; Start 03/28/17 at 14:45 Bisacodyl (Dulcolax Supp) 10 mg DAILY PRN RECTAL SEVERE CONSITIPATION; Start at 14:45 Lactulose (Lactulose Liq) 30 ml DAILY PRN PO SEVERE CONSITIPATION; Start at 14:45 Atorvastatin Calcium (Lipitor) 10 mg DAILY PO Last administered on 03/29/17at 13: 36; Start 03/28/17 at 17:00 Lactated Ringer's 1,000 ml @ 30 mls/hr Q24H PRN IV SEE LABEL COMMENTS Last administered on 03/29/17at 07:17; Start 03/28/17 at 22:30; Stop 03/29/17 at 08:39; Status DC Sodium Chloride 500 ml @ 30 mls/hr [id number] PRN IV SEE LABEL COMMENTS; Start 03/28/17 at 22:30; Stop 03/29/17 at 08:39; Status DC Metoprolol Tartrate (Lopressor) 25 mg MEDICAL SCREENER PRN PO SEE LABEL COMMENTS; Start 03/28/17 at 22:30; Stop 03/29/17 at 08:39; Status DC Povidone Iodine (Betadine 5% Antisepsis Kit) 1 applic MEDICAL SCREENER PRN EACH NARE SEE LABEL COMMENTS; Start 03/28/17 at 22:30; Stop 03/29/17 at 08:39; Status DC Chlorhexidine Gluconate (Chlorhexidine 2% Cloth) 3 pack MEDICAL SCREENER PRN TOPICAL SEE LABEL COMMENTS; Start 03/28/17 at 22:30; Stop 03/29/17 at 08:39; Status DC Vancomycin HCl (Vancomycin Inj) 1,000 mg STK-MED ONCE .ROUTE Last administered on 03/29/17at 08:55; Start 03/29/17 at 07:50; Stop 03/29/17 at 07:51; Status DC Gentamicin Sulfate (Gentamicin Inj) 240 mg STK-MED ONCE .ROUTE Last administered on 03/29/17at 09:30; Start 03/29/17 at 07:50; Stop 03/29/17 at 07:51; Status DC Sodium Chloride 250 ml @ As Directed STK-MED ONCE .ROUTE ; Start 03/29/17 at 07: 50; Stop 03/29/17 at 07:51; Status DC Lactated Ringer's 1,000 ml @ 30 mls/hr Q24H PRN IV SEE LABEL COMMENTS; Start at 08:45; Stop 04/01/17 at 08:44 Sodium Chloride 500 ml @ 30 mls/hr [id number] PRN IV SEE LABEL COMMENTS; Start 03/29/17 at 08:45; Stop 04/01/17 at 08:44 Metoprolol Tartrate (Lopressor) 25 mg MEDICAL SCREENER PRN PO SEE LABEL COMMENTS; Start 03/29/17 at 08:45; Stop 04/01/17 at 08:44 Povidone Iodine (Betadine 5% Antisepsis Kit) 1 applic MEDICAL SCREENER PRN EACH NARE SEE LABEL COMMENTS; Start 03/29/17 at 08:45; Stop 04/01/17 at 08:44 Chlorhexidine Gluconate (Chlorhexidine 2% Cloth) 3 pack MEDICAL SCREENER PRN TOPICAL SEE LABEL COMMENTS; Start 03/29/17 at 08:45; Stop 04/01/17 at 08:44 Cefazolin Sodium (Ancef Inj) 2,000 mg STK-MED ONCE .ROUTE Last administered on 03/29/17at 08:50; Start 03/29/17 at 08:40; Stop 03/29/17 at 08:41; Status DC Lactated Ringer's 1,000 ml @ 100 mls/hr Q10H IV Last administered on 03/29/17at 11:00; Start 03/29/17 at 10:45 Enoxaparin Sodium (Lovenox Inj) 40 mg Q24H SQ ; Start 03/29/17 at 20:00 Cefazolin Sodium/ Dextrose 50 ml @ 100 mls/hr Q8H IV ; Start 03/29/17 at 18:00; Stop 03/30/17 at 10:29 Acetaminophen/ Hydrocodone Bitart ([place] 10-325 Mg) 1 tab Q3H PRN PO PAIN 3<10 Last administered on 03/29/17at 13:34; Start 03/29/17 at 13:15 Ketorolac Tromethamine (Toradol Inj) 30 mg Q8HR IVP Last administered on at 13:41; Start 03/29/17 at 14:00; Stop 03/29/17 at 22:01 Calcium/Vitamin D (Oscal-D 250-125) 250 mg TID PO Last administered on at 13:34; Start 03/29/17 at 13:00 Diphenhydramine HCl (Benadryl) 25 mg Q6H PRN PO ITCHING; Start 03/29/17 at 10:45 Morphine Sulfate (Morphine Inj) 4 mg Q3H PRN IV PUSH break thru pain; Start 03/29/17 at 10:30 Ergocalciferol (Drisdol) 50,000 units Q7D PO Last administered on 03/29/17at 13: 34; Start 03/29/17 at 11:00 Cholecalciferol (Vitamin D3) 1,000 units DAILY PO ; Start 03/30/17 at 09:00; Status UNV Ascorbic Acid (Vitamin C) 1,000 mg DAILY PO ; Start 03/30/17 at 09:00 Midazolam HCl (Versed Inj) 2 mg STK-MED ONCE .ROUTE ; Start 03/29/17 at 10:26; Stop 03/29/17 at 10:27; Status DC Fentanyl Citrate (fentaNYL INJ) 300 mcg STK-MED ONCE .ROUTE ; Start 03/29/17 at 10:26; Stop 03/29/17 at 10:27; Status DC Morphine Sulfate (*morphine INJ PERIprocedure ONLY) 10 mg STK-MED ONCE .ROUTE Last administered on 03/29/17at 10:27; Start 03/29/17 at 10:27; Stop 03/29/17 at 10: 28; Status DC Morphine Sulfate (*morphine INJ PERIprocedure ONLY) 4 mg STK-MED ONCE .ROUTE Last administered on 03/29/17at 10:39; Start 03/29/17 at 10:39; Stop 03/29/17 at 10: 40; Status DC A/P Problem List: (1) HLD (hyperlipidemia) ICD Code: E78.5 - Hyperlipidemia, unspecified Status: Chronic (2) Status post fall ICD Code: Z91.81 - History of falling Status: Acute (3) Fracture of tibia with fibula, left, closed ICD Code: S82.202A - Unspecified fracture of shaft of left tibia, initial encounter for closed fracture; S82.402A - Unspecified fracture of shaft of left fibula, initial encounter for closed fracture Status: Acute Assessment and Plan Patient is a 66 YO male with PMHX of Left BBB, HLD who came in to the hospital via EMS s/p fall from ladder. Acute Left Tib Fib Fracture, close S/P fall from ladder - LLE reduced in the ED - Status post Intramedullary nail fixation left tibia by Dr. Urbina on 2017 -Management per orthopedic. Left BBB HLD - Aspirin held. restart if okay with orthopedic.. Continue Atorvastatin. - EKG reviewed SB rate 53 with LBBB - CXR showed cardiomegaly. Denies heart failure history. Follows with Dr. Delgado in the outpatient. - Monitor BP Trend DVT Prop - On Lovenox. Discharge Planning Most likely discharge to rehabilitation once medically stable. Problem Qualifiers (1) Fracture of tibia with fibula, left, closed: Qualified Codes: S82.202A - Unspecified fracture of shaft of left tibia, initial encounter for closed fracture; S82.402A - Unspecified fracture of shaft of left fibula, initial encounter for closed fracture Michelle Davila MD Mar 29, 2017 14:34
[2017-03-29 16:00] VITALS: BP 131/69; PULSE 63; RESP 18; TEMP 97.5; O2SAT 93
[2017-03-29] MEDS: ceFAZolin 2 GM PREMIX 50 ML IV SCH (17:11)
[2017-03-29] MEDS ORDERED: ENOXAPARIN SODIUM 40 MG/0.4 ML SYRINGE SQ SCH ×2 (20:00→22:30)
[2017-03-29] MEDS: MAGNESIUM HYDROXIDE SUSP 30 ML CUP PO PRN (20:08)
[2017-03-29 20:20] VITALS: BP 143/69; PULSE 71; RESP 18; TEMP 97.6; O2SAT 96
[2017-03-29 23:45] VITALS: BP 121/62; PULSE 72; RESP 17; TEMP 98.5; O2SAT 95
[2017-03-30] MEDS: ceFAZolin 2 GM PREMIX 50 ML IV SCH ×2 (01:34→10:20)
[2017-03-30 04:35] VITALS: BP 144/74; PULSE 66; RESP 17; TEMP 97.8; O2SAT 97
--- NOTE | 2017-03-30 07:13 | HHI.FF ---
Face to Face Verification Diagnosis: (1) Fracture of tibia with fibula, left, closed Nursing Dressing Changes: Daily dressing change, Gustavo wrap, 4x4s, Xeroform I have seen patient Yves Perez on 03/30/17. My clinical findings support the need for the requested home health care services because: Limited ability to care for self I certify that my clinical findings support that this patient is homebound because: Post-op weakness Frank Khan Jr. Mar 30, 2017 07:13
[2017-03-30 07:14] LABS: HEMATOCRIT 32.2 % (39.0-51.0); HEMOGLOBIN 11.4 GM/DL (13.0-17.0); MEAN CELL VOLUME 91.5 FL (80.0-100.0); MEAN CORPUSCULAR HEMOGLOBIN 32.5 PG (27.0-34.0); MEAN CORPUSCULAR HGB CONC 35.5 % (32.0-36.0); MEAN PLATELET VOLUME 7.8 FL (7.0-11.0); PLATELET COUNT 186 TH/MM3 (150-450); RED BLOOD COUNT 3.52 MIL/MM3 (4.50-5.90); RED CELL DISTRIBUTION WIDTH 13.2 % (11.6-17.2); WHITE BLOOD COUNT 6.8 TH/MM3 (4.0-11.0)
--- NOTE | 2017-03-30 07:16 | PD.ORT.PN ---
Subjective Subjective Remarks Resting comfortably with no new complaints Objective Vitals Vital Signs Date Time Temp Pulse Resp B/P (MAP) Pulse Ox O2 Delivery O2 Flow Rate FiO2 03/30/17 04:35 97.8 66 17 144/74 (97) 97 03/29/17 23:45 98.5 72 17 121/62 (81) 95 03/29/17 20:20 97.6 71 18 143/69 (93) 96 03/29/17 16:00 97.5 63 18 131/69 (89) 93 03/29/17 11:15 97.2 67 18 127/64 (85) 94 03/29/17 10:55 97.8 64 16 136/70 (92) 95 Nasal Cannula 2 03/29/17 10:45 68 15 130/68 (88) 94 Nasal Cannula 2 03/29/17 10:32 15 03/29/17 10:30 72 14 122/63 (82) 98 Nasal Cannula 3 03/29/17 10:15 97.7 78 12 118/60 (79) 95 Nasal Cannula 3 I/O 03/29/17 03/29/17 03/29/17 03/30/17 03/30/17 03/30/17 07:00 15:00 23:00 07:00 15:00 23:00 Intake Total 240 ml 1800 ml 290 ml 360 ml Output Total 300 ml 75 ml 400 ml 1450 ml Balance -60 ml 1725 ml -110 ml -1090 ml Intake Oral 240 ml 480 ml 240 ml 360 ml IV Total 320 ml 50 ml Other 1000 ml Output Urine Total 300 ml 400 ml 1450 ml Estimated Blood Loss 75 ml # Voids 0 # Bowel Movements 0 1 Result Diagram: 03/29/17 0445 03/29/17 0445 Imaging Last 24 hours Impressions Tibia/Fibula X-Ray 03/28/17 1303 Signed Impressions: Service Date/Time: Tuesday, March 28, 2017 13:02 - CONCLUSION: Ablation as above. Frederic Queen MD FACR Tibia/Fibula X-Ray 03/28/17 1220 Signed Impressions: Service Date/Time: Tuesday, March 28, 2017 11:54 - CONCLUSION: Probable re break old fracture distal tibia. Frederic Queen MD FACR Chest X-Ray 03/28/17 1148 Signed Impressions: Service Date/Time: Tuesday, March 28, 2017 12:02 - CONCLUSION: Mild compensated cardiomegaly otherwise negative Frederic Queen MD FACR Objective Remarks Left lower extremity: Clean dry dressings intact. Compartments soft. Intact sensation distally. He has contractures of foot but has active dorsiflexion plantar flexion. Assessment & Plan Assessment and Plan 1) Left Tibial Shaft Fx IM nail POD 1 Physical therapy 50% weightbearing left lower extremity May be discharged home today if doing well with physical therapy and pain is controlled Lovenox Follow-up Dr. Urbina or PA in 2 weeks Case management for dressing changes only, no physical therapy needed at this time Frank Khan Jr. PA Mar 30, 2017 07:16
[2017-03-30 07:41] LABS: BICARBONATE 27.7 MEQ/L (21.0-32.0); CREATININE 0.92 MG/DL (0.60-1.30)
[2017-03-30 08:00] VITALS: BP 146/73; PULSE 70; RESP 16; TEMP 98.3; O2SAT 96
[2017-03-30] MEDS ORDERED: CHOLECALCIFEROL (VIT D3) 1000 UNIT TAB PO SCH (09:00)
[2017-03-30] MEDS ORDERED: ASCORBIC ACID 500 MG TAB PO SCH (09:00)
[2017-03-30] MEDS ORDERED: DOCU100C15 PO (09:49)
[2017-03-30] MEDS: DOCUSATE SODIUM 50 MG/SENNA 8.6 MG TAB PO SCH (10:20)
[2017-03-30] MEDS: CALCIUM/VITAMIN D 250 MG/125 U TAB PO SCH (10:20)
[2017-03-30] MEDS: ATORVASTATIN 10 MG TAB PO SCH (10:20)
[2017-03-30] MEDS: SODIUM CHLORIDE 0.9% FLUSH 10 ML FLUSH IV FLUSH SCH (10:20)
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
== END 2017-03-30 13:14 | disposition home health service (06) | DRG 494 ==
LOC: NEPC 11:18 → NEDA 14:39 → N06B 18:35
PROVIDERS: ADMIT Hospitalist; ATTEND Hospitalist
PROC: 0QSH06Z Reposition Left Tibia with Intramedullary Internal Fixation Device, Open Approach (ICD-10-PCS; principal; 2017-03-29 08:32)
DX: S82.392A Other fracture of lower end of left tibia, initial encounter for closed fracture (principal); S82.402A Unspecified fracture of shaft of left fibula, initial encounter for closed fracture; E78.5 Hyperlipidemia, unspecified; W11.XXXA Fall on and from ladder, initial encounter; I44.7 Left bundle-branch block, unspecified; I51.7 Cardiomegaly; M25.532 Pain in left wrist; Z79.82 Long term (current) use of aspirin
CPT/HCPCS: 71045; 73110; 73590; 76000; 80048; 80053; 81001; 85025; 85027; 85610; 85730; 93005; 94150; 96374; 96375; J0690; J1170; J1580; J1650; J1885; J2250; J2270; J2405; J3010; J3370; J7050; J7120